=== PATIENT | male | born 1960 | race Caucasian/White ===

== ENCOUNTER → 2023-01-21 | Outpatient (CLI) | payer OTHER ==
[~2023-01-21] MED LIST: ALBU90OI; ALBU90OI61 INH; BUDE200IP; BUSP5; DIAZ10 PO; DIAZ5 PO; FLUO20; HYDACE5 PO; HYDCHL25; HYDCHL25 PO; IBUP600 PO; LISI20; Norco 5-325 Ta1 EACH PO; OMEP10ER; OXYACE5T PO; PRED20 PO; Robaxin-750750 MG PO; TRAZ100; TRAZ100 PO; ZESTORETIC 20-121 EA
[2023-01-22 07:54] LABS: Stool Occult Bld Immuno 1 Negative (NEGATIVE)
== END | disposition home or self-care (01) ==
LOC: LAB 11:45 → LAB SHORT 11:45
PROVIDERS: Family Medicine
DX: Z12.11 Encounter for screening for malignant neoplasm of colon (principal)
CPT/HCPCS: G0328

== ENCOUNTER → 2023-05-26 | Outpatient (CLI) | payer OTHER ==
[2023-05-27 11:37] LABS: Stool Occult Bld Immuno 1 Negative (NEGATIVE)
== END | disposition home or self-care (01) ==
LOC: LAB SHORT 12:41 → LAB 12:41
PROVIDERS: Family Medicine
DX: K92.1 Melena (principal)
CPT/HCPCS: 82274

== ENCOUNTER 2024-08-05 20:42 | Inpatient (IN) | payer OTHER ==
[~2024-08-05] VITALS: Ht 180.3 cm; Wt 104.6 kg
[2024-08-05 20:58] LABS: BASOPHILS ABSOLUTE AUTO 0.08 K/mm3 (0.00-0.23); BASOPHILS PERCENT AUTO 1 % (0-2); EOSINOPHILS ABSOLUTE AUTO 0.23 K/mm3 (0.00-0.68); EOSINOPHILS PERCENT AUTO 2 % (0-6); Hemoglobin 12.8 g/dL (13.5-17.5); IMMATURE GRAN ABSOLUTE AUTO 0.08 K/mm3 (0.00-0.10); IMMATURE GRAN PERCENT AUTO 1 % (0-1); LYMPHOCYTES ABSOLUTE AUTO 2.06 K/mm3 (0.84-5.20); LYMPHOCYTES PERCENT AUTO 14 % (21-46); MONOCYTES ABSOLUTE AUTO 1.26 K/mm3 (0.16-1.47); MONOCYTES PERCENT AUTO 9 % (4-13); Mean Corpuscular HGB 29.7 pg (26.0-34.0); Mean Corpuscular HGB Conc 33.7 g/dL (31.5-36.5); Mean Corpuscular Volume 88 fL (80-100); Mean Platelet Volume 9.6 fL (9.1-12.4); NEUTROPHILS ABSOLUTE AUTO 10.77 K/mm3 (1.96-9.15); NEUTROPHILS PERCENT AUTO 74 % (41-73); Platelet Count 243 K/mm3 (150-400); RDW Coefficient Variation 14.3 % (11.7-14.2); RDW Standard Deviation 45.9 fL (35.1-46.3); Red Blood Cell Count 4.31 M/mm3 (4.30-5.90); White Blood Cell Count 14.48 K/mm3 (4.00-11.30)
[2024-08-05] MEDS ORDERED: Nitroglycerin 0.4 MG SUBL SL PRN (21:25)
[2024-08-05] MEDS ORDERED: Aspirin 81 MG Chew PO ONE (21:25)
[2024-08-05] MEDS ORDERED: Ipratropium/Albuterol SulF 2.5-0.5MG/3 ML Amp INH ONE (21:25)
[2024-08-05] MEDS ORDERED: MethylPREDNISolone Sod Succ 125 MG Vial IV ONE (21:25)
[2024-08-05 21:32] LABS: Albumin, Blood 3.7 g/dL (3.4-5.0); Albumin/Globulin Ratio 1.2 (0.8-1.8); Bilirubin, Total 0.7 mg/dL (0.1-1.0); Bun/Creatinine Ratio 9.4 (12.0-20.0); Calcium, Blood 9.1 mg/dL (8.5-10.1); Creatinine, Blood 1.49 mg/dL (0.60-1.20); Globulin, Blood 3.2 g/dL (2.2-4.0); Potassium, Blood 4.3 mmol/L (3.5-5.5); Total Protein, Blood 6.9 g/dL (6.4-8.2)
[2024-08-05 22:59] LABS: Influenza A, PCR NEGATIVE (NEGATIVE); Influenza B, PCR NEGATIVE (NEGATIVE); Resp Syncytial Virus, PCR NEGATIVE (NEGATIVE); SARS-Cov-2 (COVID-19) PCR, MMC NEGATIVE (NEGATIVE)
[2024-08-05 23:02] LABS: Anti-Xa UFH, PHA Monitoring <0.10 IU/mL; International Normalized Ratio 0.93
[2024-08-05] MEDS ORDERED: Heparin Sodium 5000 Units/ML 1ML MDV IV ONE (23:25)
[2024-08-05] MEDS ORDERED: Heparin Sodium,Porcine/0.5 NS 500 ML IV SCH (23:30)
[2024-08-06] VITALS (21 sets, daily range): BP systolic 124–164; BP diastolic 60–94
[2024-08-06] MEDS ORDERED: Magnesium Hydroxide Conc 10 ML UDC PO PRN (00:55)
[2024-08-06] MEDS ORDERED: Morphine Sulfate 4 MG/1 ML Injection IV PRN (00:55)
[2024-08-06] MEDS ORDERED: TraZODone HCl 100 MG Tab PO PRN (01:00)
[2024-08-06] MEDS ORDERED: Sennosides 8.6 MG Tab PO PRN (01:00)
[2024-08-06] MEDS ORDERED: Clopidogrel Bisulfate 300 MG Cap PO ONE (01:00)
[2024-08-06] MEDS ORDERED: BUPROPION XL150 M1 PO (02:45)
[2024-08-06] MEDS ORDERED: NITROGLYCERIN0.4 M3 SL (02:45)
[2024-08-06] MEDS ORDERED: ZOLOFT10013 PO (02:46)
[2024-08-06] MEDS ORDERED: PREGABALIN75 MG PO (02:53)
[2024-08-06] MEDS ORDERED: TIZANIDINE HCL213 PO (02:54)
[2024-08-06] MEDS ORDERED: AMLODIPINE BESYL5 MG PO (02:54)
[2024-08-06] MEDS ORDERED: SPIRONOLACTONE25 MG PO (02:55)
[2024-08-06] MEDS ORDERED: INCRUSE ELPT62.5MCG (02:56)
[2024-08-06 06:00] LABS: CHOL/HDL RATIO 2.7; Cholesterol 172 mg/dL (50-200); HDL Cholesterol 63 mg/dL (>39); LDL/HDL RATIO 1.6; Low Density Lipoprotein Chol 100 mg/dL (0-110); Triglycerides 46 mg/dL (30-160); Very Low Density Lipoprot Chol 9 mg/dL (6-32)
[2024-08-06] MEDS ORDERED: Verapamil HCL 2.5 MG/ML 2ML Injection ONE (08:21)
[2024-08-06] MEDS ORDERED: NS 1,000 ML IV ONE ×2 (08:22→09:00)
[2024-08-06] MEDS ORDERED: NS 250 ML IV ONE (08:22)
[2024-08-06] MEDS ORDERED: Nitroglycerin 2 MG/20 ML BTL ONE (08:22)
[2024-08-06] MEDS ORDERED: FentaNYL Citrate 50 MCG/ML 2 ML Injection ONE (08:59)
[2024-08-06] MEDS ORDERED: Atorvastatin 40 MG Tab PO SCH (09:00)
[2024-08-06] MEDS ORDERED: Spironolactone 25 MG Tab PO SCH (09:00)
[2024-08-06] MEDS ORDERED: AmLODIPine Besylate 5 MG Tab PO SCH (09:00)
[2024-08-06] MEDS ORDERED: Midazolam HCl 1MG / ML 2ML Vial ONE (09:00)
[2024-08-06] MEDS ORDERED: Aspirin 81 MG Chew PO SCH (09:00)
--- NOTE | 2024-08-06 10:53 | NUR ---
THIS RN ASSUMED CARE OF THE PT AROUND 1015 REPORT FROM CRANIOLOGIST SARAH GARCIA. PT HAS A RIGHT RAIDAL TRBAND INTACT WITH 12CC'S IN THE BAND. SITE WITHOUT BLEEDING OR HEMATOMA. CAP REFILL <3 SEC IN DISTAL FINGERS AND THE PT DENIES ANY ANGINA. THE PT SITTING UP IN THE ROOM ON RA AND DENIES ANY SOB. LUNGS CLEAR T/O. VS STABLE. PT WITH MINIMAL CHEST DISCOMFORT. PT STATES HE IS FEELING ALOT BETTER. HE IS A&OX4, AND SON IS AT BEDSIDE. DR. SILVA CAME TO BEDSIDE AND PLAN TO D/C PT AFTER TR BAND RECOVERY. SEE NOTES FOR UPDATES.
[2024-08-06] MEDS ORDERED: ASPI81CH PO (12:20)
[2024-08-06] MEDS ORDERED: ATOR20 PO (12:22)
--- NOTE | 2024-08-06 13:36 | NUR ---
TR BAND FULLY RECOVERED ON RIGHT WRIST. RIGHT RADIAL SITE CLEANED WITH CHG SWAB AND TEGADERM PLACED OVER SITE. NO BLEEDING, HEMTOMA, OR ECCHYMOSIS NOTED. DISTAL EXTREMITES UNEFFECT. NO TENDERNESS. PT DENIES INCREASED SOB OF CHEST PAIN. FEELS BETTER THEN HE CAME IN BUT STILL HAS SOME DISCOMFORT. PROVIDER AWARE. IV'S REMOVED BY THIS RN. DISCHRGE INSTRUCTIONS GONE OVER WITH THE PT AND HIS SON. ALL BELONGINGS RETURNED TO THE PT. NO FURTHER NOTES.
[2024-08-07] MEDS ORDERED: Clopidogrel Bisulfate 75 MG Tab PO SCH (05:00)
== END 2024-08-06 14:00 | disposition home or self-care (01) | DRG 287 ==
LOC: ER 20:42 → PCU 08-06 00:53
PROVIDERS: Emergency Medicine; Family Medicine; Student in an Organized Health Care Education/Training Program; ADMIT Student in an Organized Health Care Education/Training Program
PROC: 4A023N7 Measurement of Cardiac Sampling and Pressure, Left Heart, Percutaneous Approach (ICD-10-PCS; principal; 2024-08-06)
PROC: B2111ZZ Fluoroscopy of Multiple Coronary Arteries using Low Osmolar Contrast (ICD-10-PCS; 2024-08-06)
DX: R07.89 Other chest pain (principal); N18.32 Chronic kidney disease, stage 3b; I12.9 Hypertensive chronic kidney disease with stage 1 through stage 4 chronic kidney disease, or unspecified chronic kidney disease; G89.29 Other chronic pain; M54.9 Dorsalgia, unspecified; J44.9 Chronic obstructive pulmonary disease, unspecified; I25.10 Atherosclerotic heart disease of native coronary artery without angina pectoris; Z88.0 Allergy status to penicillin; Z79.899 Other long term (current) drug therapy; Z87.891 Personal history of nicotine dependence
CPT/HCPCS: 0241U; 36415; 71046; 76937; 80053; 80061; 83036; 83735; 83880; 84484; 85025; 85520; 85610; 93458; 94640; 94664; 94760; 94762; 96374; 96375; 99152; 99285-25; A9270; C1769; C1887; C1894; J1644; J2250; J2270; J2919; J3010; J7030; J7050; Q9967